=== PATIENT | female | born 2000 | race Caucasian/White ===

== ENCOUNTER 2024-11-30 01:42 | Emergency (ER) | payer SELFPAY ==
--- NOTE | ~2024-11-30 | XR_ITS ---
Clinical Indication: Pneumonia PA and lateral views of the chest: Comparison: None Findings: The lungs are clear, without evidence of focal consolidation or pleural effusion. Cardiome diastinal silhouette is within normal limits. Bones and soft tissues are unremarkable. Impression: Normal chest. Reviewed, dictated and finalized at [facility]. ORTHOPAEDICS Impression: Normal chest.
[2024-11-30 01:52] VITALS: BP 130/98; PULSE 109; RESP 20; TEMP 36.4; O2SAT 99
--- NOTE | 2024-11-30 03:26 | ECG_ITS ---
Test Date: 2024-11-30 04:31:23 Measurements Intervals [place] Rate: 101 P: 26 [place]: 109 QRS: 66 QRSD: 76 T: 48 QT: 332 QTc: 432 Interpretive Statements SINUS TACHYCARDIA WITH SHORT [place] INTERVAL ABNORMAL RHYTHM ECG No previous ECG available for comparison Electronically Signed On 12-04-2024 11:17:29 IT DATA ARCHITECT by Swapnil Mcdermott M.D.
[2024-11-30 03:38] LABS: Influenza A QL RT-PCR Positive (Negative); Influenza B QL RT-PCR Negative (Negative); RSV RNA, RT-PCR Negative (Negative); SARS-CoV-2 RNA PCR Negative (Negative)
[2024-11-30 04:34] VITALS: O2SAT 99
[2024-11-30 04:38] LABS: Basophils Percent Auto 0.2 % (0.2-1.2); Eosinophils Absolute Auto 0.1 K/mm3 (0-0.3); Eosinophils Percent Auto 1.5 % (0-4.4); Hematocrit 37.9 % (37.0-47.0); Hemoglobin 12.9 g/dL (12.0-15.0); Immature Granulocyte Absolute 0.06 K/mm3 (0.00-0.031); Immature Granulocyte Percent A 0.7 % (0-0.5); Lymphocytes Absolute Auto 2.16 K/mm3 (0.9-3.2); Lymphocytes Percent Auto 24.8 % (18.3-44.2); Mean Corpuscular Hemoglobin 29.3 pg (26-34); Mean Corpuscular Volume 85.9 fl (80-100); Mean Platelet Volume 9.9 fl (7.4-10.4); Monocytes Absolute Auto 0.8 K/mm3 (0.1-0.6); Monocytes Percent Auto 8.7 % (2.6-8.5); Neutrophils Absolute Auto 5.6 K/mm3 (1.3-6.7); Neutrophils Percent Auto 64.1 % (45.5-73.1); Platelet Count Result 334 k/mm3 (150-375); Red Blood Count 4.41 M/mm3 (4.2-5.4); Red Cell Distribution Width 15.3 % (11.5-14.5); White Blood Count 8.7 K/mm3 (4.5-10.0)
[2024-11-30] MEDS: SODIUM CHLORIDE 0.9% IV 2,000 ML 999 ML IV CONT (04:45)
[2024-11-30] MEDS: ACETAMINOPHEN 500 MG TABLET 1000 MG PO (04:45)
[2024-11-30 04:54] LABS: Alanine Aminotransferase 35 U/L (6-35); Albumin Level 3.8 g/dL (3.5-5.1); Alkaline Phosphatase 124 U/L (38-126); Anion Gap 6 mmol/L (4-12); Aspartate Amino Transferase 56 U/L (14-36); Bilirubin,Total 0.3 mg/dL (0.2-1.3); Blood Urea Nitrogen 4 mg/dL (7-17); Calcium 9.1 mg/dL (8.4-10.2); Carbon Dioxide 28 mmol/L (22-30); Chloride 108 mmol/L (98-107); Estimated CRCL calculation 104 ml/min; Estimated Glomerular Filt Rate > 60; Glucose 108 mg/dL (65-110); Potassium 3.2 mmol/L (3.4-5.0); Sodium 142 mmol/L (137-145)
--- NOTE | 2024-11-30 04:56 | ED_ITS ---
HPI - General Adult General Chief complaint: Upper Respiratory Infection Stated complaint: upper resp symptoms Time Seen by Provider: 11/30/24 03:16 History of Present Illness HPI narrative: This is a 24-year-old female presenting with 5 days of flu-like symptoms. Started with a sore throat that she has developed some chest congestion and productive cough. Patient denies fevers chills. She has had nausea/vomiting and diarrhea. Related Data Allergies Allergy/AdvReac Type Severity Reaction Status Date / Time amoxicillin Allergy Unknown Verified 07/14/16 19:04 Exam 2 Narrative: APPEARANCE: No apparent distress. Head: atraumatic. TMs are normal, no erythema of the posterior oropharynx EYES: EOMI, NOSE: Atraumatic NECK: Trachea midline RESPIRATORY: No increased rate of breathing clear to auscultation CARDIOVASCULAR: tachycardic, no peripheral edema ABDOMINAL: Non-distended MUSCULOSKELETAl: No obvious deformities NEURO: Alert. Moving 4/4 extremities SKIN:: Warm, dry. Normal color PSYCHIATRIC: Normal affect Course Vital Signs Vital signs: Vital Signs Temperature 97.6 F 11/30/24 01:52 Pulse Rate 109 H 11/30/24 01:52 Respiratory Rate 20 11/30/24 01:52 Blood Pressure 130/98 H 11/30/24 01:52 Pulse Oximetry 99 11/30/24 01:52 Oxygen Delivery Room Air 11/30/24 01:52 Temperature 97.6 F 11/30/24 01:52 Pulse Rate 109 H 11/30/24 01:52 Respiratory Rate 20 11/30/24 01:52 Blood Pressure 130/98 H 11/30/24 01:52 Pulse Oximetry 99 11/30/24 04:34 Oxygen Delivery Room Air 11/30/24 04:34 Medical Decision Making [facility] Narrative Medical decision making narrative: -Course: 22-year-old female presenting with flu-like symptoms. Tachycardic on arrival. Given Tylenol and normal saline fluid resuscitation chest x-ray is clear. laboratory studies within normal limits. Patient is positive for flu A. Patient is not in respiratory distress requiring supplemental oxygen. Patient be discharged with primary care follow-up and return precautions. Independent EKG interpretation: Rhythm [sinus], Rate [101], [place] -[normal], SD -[normal], QRS [narrow], QTC [normal], T waves -[negative for concerning inversions], ST Segments - [Negative for concerning elevations] Final interpretations: Sinus tach -DDX includes but is not limited to: Viral syndrome, COVID flu strep pneumonia -Co-morbidities complicating care: history of pneumonia requiring intubation -Interventions: 2 L normal saline, Tylenol -Shared decision making / Disposition: discharged. Vital Signs Vital Signs: Vital Signs Temperature 97.6 F 11/30/24 01:52 Pulse Rate 109 H 11/30/24 01:52 Respiratory Rate 20 11/30/24 01:52 Blood Pressure 130/98 H 11/30/24 01:52 Pulse Oximetry 99 11/30/24 01:52 Oxygen Delivery Room Air 11/30/24 01:52 Temperature 97.6 F 11/30/24 01:52 Pulse Rate 109 H 11/30/24 01:52 Respiratory Rate 20 11/30/24 01:52 Blood Pressure 130/98 H 11/30/24 01:52 Pulse Oximetry 99 11/30/24 04:34 Oxygen Delivery Room Air 11/30/24 04:34 Lab Data 11/30/24 04:25 11/30/24 04:25 Labs: Lab Results 11/30/24 11/30/24 Range/Units 02:59 04:25 WBC 8.7 (4.5-10.0) K/mm3 RBC 4.41 (4.2-5.4) M/mm3 Hgb 12.9 (12.0-15.0) g/dL Hct 37.9 (37.0-47.0) % MCV 85.9 (80-100) fl MCH 29.3 (26-34) pg MCHC 34.0 (32-36) g/dl RDW 15.3 H (11.5-14.5) % Plt Count 334 (150-375) k/mm3 MPV 9.9 (7.4-10.4) fl Immature Gran % (Auto) 0.7 H (0-0.5) % Neut % (Auto) 64.1 (45.5-73.1) % Lymph % (Auto) 24.8 (18.3-44.2) % [place] % (Auto) 8.7 H (2.6-8.5) % Eos % (Auto) 1.5 (0-4.4) % Baso % (Auto) 0.2 (0.2-1.2) % Lymph # (Auto) 2.16 (0.9-3.2) K/mm3 [place] # (Auto) 0.8 H (0.1-0.6) K/mm3 Eos # (Auto) 0.1 (0-0.3) K/mm3 Baso # (Auto) 0.0 (0.0-0.1) K/mm3 Abs Immat Gran (auto) 0.06 H (0.00-0.031) K/mm3 Absolute Neuts (auto) 5.6 (1.3-6.7) K/mm3 Absolute Nucleated RBC 0.000 (0.0-0.012) K/mm3 Nucleated RBC % 0.0 (0.0-0.2) % Sodium 142 (137-145) mmol/L Potassium 3.2 L (3.4-5.0) mmol/L Chloride 108 H (98-107) mmol/L Carbon Dioxide 28 (22-30) mmol/L Anion Gap 6 (4-12) mmol/L BUN 4 L (7-17) mg/dL Creatinine 0.60 L (0.7-1.0) mg/dL Estim Creat Clear Calc 104 ml/min Estimated GFR > 60 (59 - ) Glucose 108 (65-110) mg/dL Calcium 9.1 (8.4-10.2) mg/dL Total Bilirubin 0.3 (0.2-1.3) mg/dL AST 56 H (14-36) U/L ALT 35 (6-35) U/L Alkaline Phosphatase 124 (38-126) U/L Total Protein 7.0 (6.3-8.2) g/dL Albumin 3.8 (3.5-5.1) g/dL Influenza A (RT-PCR) Positive A (Negative) Influenza B (RT-PCR) Negative (Negative) RSV (RT-PCR) Negative (Negative) SARS-CoV-2 RNA (RT-PCR) Negative (Negative) Group A Strep (PCR) Pending Discharge Plan Discharge Clinical Impression: Flu Patient Disposition: Home, Self-Care Condition: Stable Instructions: Antibiotic Form, Influenza (DC) Additional Instructions: You were seen in the ED for flu-like symptoms. You have the flu. Please follow-up with your primary care physician. You can use Motrin Tylenol for fevers. Make sure you are drinking plenty of fluids. If your condition is getting worse or you develop chest pain shortness breath please return the ED for re-evaluation. Patient Language: Gabonese Follow-up/Referrals: UNKNOWN,DOCTOR [Primary Care Provider] -
[2024-11-30 05:00] VITALS: BP 133/93; PULSE 87; RESP 15; O2SAT 100
[2024-11-30 05:01] LABS: Strep Group A RT-PCR NOT DETECTED (Negative)
[2024-11-30] MEDS: POTASSIUM CHLORIDE 20 MEQ PACKET (FOR LIQUID) 40 MEQ PO (06:18)
[2024-11-30 06:22] VITALS: BP 130/88; PULSE 83; RESP 14; O2SAT 99
[2024-11-30 06:35] VITALS: BP 130/88; PULSE 83; RESP 14; O2SAT 99
== END 2024-11-30 06:37 | disposition home or self-care (01) ==
PROVIDERS: Emergency Provider Emergency Medicine
DX: J10.1 Influenza due to other identified influenza virus with other respiratory manifestations (principal); Z20.822 Contact with and (suspected) exposure to COVID-19; R00.0 Tachycardia, unspecified
CPT/HCPCS: 36415; 71046; 80053; 85025; 87637; 87651; 93005; 96360; 96361; 99283; A9270; J7030